=== PATIENT | male | born 1945 | race Caucasian/White ===

== ENCOUNTER 2019-11-19 05:42 | Outpatient (RCR) | payer MEDICARE, OTHER ==
[~2019-11-19] VITALS: Ht 177 cm; Wt 87.7 kg
[2019-11-19] MEDS ORDERED: FINA5TAB6 PO (12:50)
[2019-11-19] MEDS ORDERED: TMSL.4C PO (12:50)
[2019-11-26] MEDS ORDERED: CIPR-226 PO (11:52)
[2019-11-26] MEDS ORDERED: ACET1TAB43 PO (11:52)
== END 2020-02-17 | disposition still patient (30) ==
LOC: PREOP 05:42
PROVIDERS: ATTEND Radiology Radiation Oncology
DX: Z01.818 Encounter for other preprocedural examination (principal)

== ENCOUNTER 2019-11-26 11:35 | Day surgery (SDC) | payer MEDICARE, OTHER ==
[~2019-11-26] VITALS: Ht 177 cm; Wt 87.7 kg
[2019-11-26] VITALS (11 sets, daily range): BP systolic 129–164; BP diastolic 79–98
[~2019-11-26 11:35] MED LIST: FINA5TAB6 PO; LACTATED RINGERS 1,000 ML IV PRN; TMSL.4C PO
--- NOTE | 2019-11-26 11:50 | Progress Note-Pre Operative ---
Pre-Operative Progress Note H&P Reviewed The H&P was reviewed, patient examined and no changes noted. Date Seen by Provider: Nov 26, 2019 Time Seen by Provider: 11:49 Date H&P Reviewed: Nov 26, 2019 Time H&P Reviewed: 11:49 Pre-Operative Diagnosis: Prostate cancer cT1c, PSA 9.13 (on Proscar), [place] 7 (4+3) KEELEY ALFONSO MD Nov 26, 2019 11:50
[2019-11-26] MEDS ORDERED: CIPR-226 PO (11:52)
[2019-11-26] MEDS ORDERED: ACET1TAB43 PO (11:52)
--- NOTE | 2019-11-26 11:54 | Discharge Inst-Simple/Standard ---
Discharge Inst-Standard Reconcile Patient Problems Problems Reviewed?: Yes Discharge Medications New, Converted or Re-Newed RX: RX Given to Pt/Family Patient Instructions/Follow Up Plan of Care/Instructions/FU: 1)Post implant ct scan at [facility] 12/25/19 at 1:00 pm 2)Follow up with Dr. Quijano on 12/26/19 at 10:15 am Activity as Tolerated: Yes Discharge Diet: No Restrictions Other Inst to Patient Please instruct patient on sweet catheter removal. Date of removal per Dr. Quijano. KEELEY ALFONSO MD Nov 26, 2019 11:54
[2019-11-26] MEDS ORDERED: LEVOFLOXACIN 500 MG/100 ML IV 100 ML IV ONE (12:00)
[2019-11-26] MEDS ORDERED: CATHETER FLUSH 10 ML SYR IV PRN (12:15)
--- OUTSIDE RECORDS SUMMARY | 2019-11-26 12:18 | XMS REPORT | Continuity of Care Document ---
Author Organization Unknown Address Unknown Phone Unavailable Allergies Active Description Code Type Severity Reaction Onset Reported/Identified Relationship to Patient Clinical Status Yes No Known Drug Allergies [id number] Drug Allergy Unknown N/A 11/19/2019 Medications There is no data. Problems There is no data. Procedures There is no data. Results There is no data. Encounters ACCT No. Visit Date/Time Discharge Status Pt. Type Provider Facility Loc./Unit Complaint [id number] 11/19/2019 05:42:00 23:59:59 CLS Outpatient KEELEY ALFONSO MD [facility] PREOP PROSTATE CANCER [id number] 10/08/2019 08:30:00 020 23:59:59 CLS Outpatient KEELEY ALFONSO MD [facility] ONC [id number] 11/26/2019 13:45:00 P EN Preadmit KEELEY ALFONSO MD [facility] PROSTATE CANCER
[2019-11-26] MEDS ORDERED: IOPAMIDOL 61% 30 ML (ISOVUE 300) VIAL ONE (13:41)
[2019-11-26] MEDS ORDERED: MIDAZOLAM 2 MG/2 ML (VERSED) VIAL ONE (13:50)
[2019-11-26] MEDS ORDERED: proPOfol 200 MG/20 ML (DIPRIVAN) VIAL IV ONE (13:50)
[2019-11-26] MEDS ORDERED: fentaNYL INJECTION 100 MCG/2 ML AMP ONE (13:50)
[2019-11-26] MEDS ORDERED: LIDOCAINE PF 2% 5 ML (XYLOCAINE) VIAL ONE (13:51)
[2019-11-26] MEDS ORDERED: ONDANSETRON 4 MG/2 ML (SDV) Z0FRAN ONE (13:52)
[2019-11-26] MEDS ORDERED: SEVOFLURANE (ULTANE) 15 ML INHAL SOLN ONE ×2 (13:52→14:46)
[2019-11-26] MEDS ORDERED: BACITRACIN OINTMENT 28 GM TUBE ONE (14:50)
--- NOTE | 2019-11-26 15:08 | Anesthesia-General Post-Op ---
General Patient Condition Mental Status/LOC: Same as Preop Cardiovascular: Satisfactory Nausea/Vomiting: Absent Respiratory: Satisfactory Pain: Controlled Complications: Absent Post Op Complications Complications None Follow Up Care/Instructions Patient Instructions None needed. Anesthesia/Patient Condition Patient Condition Patient is doing well, no complaints, stable vital signs, no apparent adverse anesthesia problems. No complications reported per nursing. D/C home per [facility] Criteria: Yes THOMAS HAYES CRNA Nov 26, 2019 15:08
[2019-11-26] MEDS ORDERED: HYDROmorphone 2 MG/ML VIAL (DILAUDID) IV ONE (15:15)
[2019-11-26] MEDS ORDERED: ONDANSETRON 4 MG/2 ML (SDV) Z0FRAN IVP PRN (15:15)
--- NOTE | 2019-11-26 15:16 | Progress Note-Post Operative ---
Post-Operative Progess Note Surgeon (s)/Assistant Facility Manager (s) Surgeon KEELEY ALFONSO MD Assistant Facility Manager: Janeth DIANE MD Pre-Operative Diagnosis Prostate cancer cT1c, PSA 9.13 (on Proscar), [place] 7 (4+3) Post-Operative Diagnosis Same as pre-op Procedure & Operative Findings Date of Procedure 11/26/19 Procedure Performed/Findings (1) 67% Cesium 131 permanent prostate seed implant (2) Injection of biodegradable hydrogel prostate-rectal spacer utilizing the SpaceOAR system (2) Cystogram Prostate volume 20.35 cc Anesthesia Type General Estimated Blood Loss Estimated blood loss (mL): Minimal Specimens/Packing Specimens Removed None Packing: N/A KEELEY ALFONSO MD Nov 26, 2019 15:16
[2019-11-26] MEDS ORDERED: HYDROmorphone 2 MG/ML VIAL (DILAUDID) ONE (15:24)
--- NOTE | 2019-11-26 16:00 | NUR ---
TO AMB SURG FROM PAR PER CART. ALERT, RATES PAIN 2, DESCRIBES "PRESSURE, LIKE I NEED TO PEE". PT VERBALIZED UNDERSTANDING OF HANSEN CATH DRAINING BLADDER. PAIN MED OFFERED, REFUSED. PO FLUIDS PROVIDED. URINE CLEAR, YELLOW TO DD HANSEN BAG ON LOWER BED RAIL. CATHETER SECURED TO LEFT LEG WITH STATLOCK. NO BLEEDING FROM [facility] OR AT PERINEAL SURGICAL SITE. PRESCRIPTIONS HAVE BEEN CALLED TO [facility], [place], [place].
--- NOTE | 2019-11-26 16:19 | Diagnostic Imaging Report ---
INDICATION: Prostate cancer. IMPRESSION: Two seconds of fluoroscopy and a single digital image were used by Dr. Hong during brachytherapy seed implantation in the prostate. Dictated by: Dictated on workstation # [id number]
--- NOTE | 2019-11-26 16:30 | NUR ---
TAKING PO FLUIDS WITHOUT PROBLEM. NO CHANGE IN PAIN/SITE/URINE ASSESSMENTS.
--- NOTE | 2019-11-26 17:14 | NUR ---
PAIN RATED 1-2. NO CHANGE IN ASSESSMENTS. HANSEN CATH TO LEG BAG FOR DISMISSAL. DISCHARGE INSTRUCTIONS DISCUSSED WITH AND DEMONSTRATED TO PT AND . SUPPLIES PROVIDED TO PT FOR CATHETER REMOVAL AND CARE. REQUESTING DISMISSAL.
== END 2019-11-26 17:14 | disposition home or self-care (01) ==
LOC: SDC 11:35
PROVIDERS: ATTEND Radiology Radiation Oncology
DX: C61 Malignant neoplasm of prostate (principal); Z82.49 Family history of ischemic heart disease and other diseases of the circulatory system
CPT/HCPCS: 55874; 76000; 76965; 77290; 77318; 77332; 77370; 77470; 77778; 87081; C1715 ×2; C2643

== ENCOUNTER 2019-12-25 12:56 | Outpatient (RCR) | payer MEDICARE, OTHER ==
[~2019-12-25 12:56] MED LIST changes: +ACET1TAB43 PO; +CIPR-226 PO; -LACTATED RINGERS 1,000 ML IV PRN
== END 2020-01-06 | disposition home or self-care (01) ==
LOC: ONC 12:56
PROVIDERS: ATTEND Radiology Radiation Oncology
DX: C61 Malignant neoplasm of prostate (principal); Z79.899 Other long term (current) drug therapy
CPT/HCPCS: 76873; G0463; 77290; 99205

== ENCOUNTER 2020-03-03 09:55 | Outpatient (RCR) | payer MEDICARE, OTHER | END 2020-04-12 | disposition home or self-care (01) | LOC: ONC 09:55 | PROVIDERS: ATTEND Radiology Radiation Oncology | DX: Z51.0 Encounter for antineoplastic radiation therapy (principal); C61 Malignant neoplasm of prostate; Z79.899 Other long term (current) drug therapy | CPT/HCPCS: 77295; 77300; 77301; 77334; 77336; 77338; 77385 ==

== ENCOUNTER → 2020-05-06 | Outpatient (CLI) | payer MEDICARE, OTHER | LOC: ONC 14:13 | PROVIDERS: ATTEND Radiology Radiation Oncology | DX: C61 Malignant neoplasm of prostate (principal) | CPT/HCPCS: 84153; G0463; 99213 ==